=== PATIENT | female | born 1980 | race African-American/Black ===

== ENCOUNTER 2017-09-19 01:29 | Emergency (ER) | payer OTHER, SELFPAY ==
[2017-09-19] MEDS ORDERED: Naproxen 500 MG TAB ONE (02:20)
--- NOTE | 2017-09-19 07:58 | RAD ---
LEFT FOOT 3 VIEWS: HISTORY: Medial foot pain. FINDINGS: Hallux valgus deformity is present. No acute fracture, dislocation, or bony destruction is identifie d. POS: OFF
== END 2017-09-19 03:15 | disposition home or self-care (01) ==
LOC: ERS 01:29
DX: M79.672 Pain in left foot (principal); M54.9 Dorsalgia, unspecified; M41.9 Scoliosis, unspecified

== ENCOUNTER 2018-01-07 19:59 | Emergency (ER) | payer SELFPAY ==
[2018-01-07] MEDS ORDERED: Bacitracin Zinc 1 Packet ONE (20:31)
== END 2018-01-07 20:36 | disposition home or self-care (01) ==
LOC: ERS 19:59
DX: S01.511A Laceration without foreign body of lip, initial encounter (principal); S60.512A Abrasion of left hand, initial encounter; F41.9 Anxiety disorder, unspecified; F32.9 Major depressive disorder, single episode, unspecified; Y04.0XXA Assault by unarmed brawl or fight, initial encounter
CPT/HCPCS: 99282